=== PATIENT | male | born 1985 | race African-American/Black ===

== ENCOUNTER 2017-02-10 23:40 | Emergency (ER) | payer MEDICARE, MEDICAID ==
[~2017-02-10] VITALS: Ht 180.3 cm; Wt 98.7 kg
[~2017-02-10 23:40] MED LIST: DIVA-18
[2017-02-11] MEDS ORDERED: LEVETIRACETAM 500MG PREMIX 100 ML IV ONE (00:45)
[2017-02-11] MEDS ORDERED: LEVETIRACETAM 500MG TABLET PO NR (01:30)
[2017-02-11] MEDS ORDERED: LEVETIRACETAM 500MG TABLET PO ONE (01:30)
[2017-02-11 02:12] VITALS: BP 124/80
== END 2017-02-11 02:23 | disposition home or self-care (01) ==
LOC: ER 23:45
DX: G40.909 Epilepsy, unspecified, not intractable, without status epilepticus (principal); F17.210 Nicotine dependence, cigarettes, uncomplicated; F12.10 Cannabis abuse, uncomplicated; Z79.899 Other long term (current) drug therapy
CPT/HCPCS: 99283; J1953

== ENCOUNTER 2017-03-11 19:11 | Emergency (ER) | payer MEDICARE, MEDICAID ==
[~2017-03-11] VITALS: Ht 180.3 cm; Wt 84.0 kg
[2017-03-11 19:16] VITALS: BP 122/78
[2017-03-11 21:21] LABS: *AMPHETAMINES SCREEN URINE NEGATIVE (NEGATIVE); *BARBITURATES SCREEN URINE NEGATIVE (NEGATIVE); *BENZODIAZEPINES SCREEN URINE NEGATIVE (NEGATIVE); *COCAINE SCREEN URINE NEGATIVE (NEGATIVE); CANNABINOID URINE SCREEN PRESUMTIVE POSITIVE (NEGATIVE); ECSTASY MDMA SCREEN URINE NEGATIVE (NEGATIVE); METHADONE URINE SCREEN NEGATIVE (NEGATIVE); OPIATES URINE SCREEN NEGATIVE (NEGATIVE); PHENCYCLIDINE URINE SCREEN NEGATIVE (NEGATIVE)
== END 2017-03-11 21:51 | disposition home or self-care (01) ==
LOC: ER 19:12
DX: F19.10 Other psychoactive substance abuse, uncomplicated (principal); F17.210 Nicotine dependence, cigarettes, uncomplicated
CPT/HCPCS: 80305; 99283

== ENCOUNTER 2017-05-05 05:54 | Emergency (ER) | payer MEDICAID, MEDICARE ==
[~2017-05-05] VITALS: Ht 175.3 cm; Wt 82.0 kg
[2017-05-05 05:57] VITALS: BP 140/100
== END 2017-05-05 06:30 | disposition left against medical advice (07) ==
LOC: ER 06:02
DX: R51 Headache (principal); Z53.21 Procedure and treatment not carried out due to patient leaving prior to being seen by health care provider

== ENCOUNTER 2017-08-03 00:11 | Emergency (ER) | payer MEDICAID ==
[~2017-08-03] VITALS: Ht 180.3 cm; Wt 84.0 kg
[~2017-08-03 00:11] MED LIST changes: +KEPP500 PO
[2017-08-03 05:10] VITALS: BP 115/70
[2017-08-03] MEDS ORDERED: BACITRACIN ZINC OINT UDPKT TOP SCH ×2 (07:30)
== END 2017-08-03 07:55 | disposition home or self-care (01) ==
LOC: ER 00:17
DX: S80.212A Abrasion, left knee, initial encounter (principal); S80.211A Abrasion, right knee, initial encounter; G40.909 Epilepsy, unspecified, not intractable, without status epilepticus; Y09 Assault by unspecified means; Y93.89 Activity, other specified; Y92.89 Other specified places as the place of occurrence of the external cause
CPT/HCPCS: 99283

== ENCOUNTER 2017-09-11 10:57 | Emergency (ER) | payer MEDICAID ==
[~2017-09-11] VITALS: Ht 177.8 cm; Wt 80.0 kg
[2017-09-11 10:58] VITALS: BP 126/76
[2017-09-11] MEDS ORDERED: LEVETIRACETAM 1,000 MG in SODIUM CHLORIDE 0.9% 100 ML IV ONE (11:45)
== END 2017-09-11 11:55 | disposition home or self-care (01) ==
LOC: ER 11:12
DX: R56.9 Unspecified convulsions (principal)
CPT/HCPCS: 99283; J1953; Z7610; J7050

== ENCOUNTER 2017-09-17 00:52 | Emergency (ER) | payer MEDICAID ==
[~2017-09-17] VITALS: Ht 182.9 cm; Wt 91.0 kg
[2017-09-17] MEDS ORDERED: SODIUM CHLORIDE 0.9% 1,000 ML IV ONE (01:35)
[2017-09-17] MEDS ORDERED: LEVETIRACETAM 500MG PREMIX 100 ML IV ONE (01:45)
[2017-09-17 09:26] VITALS: BP 110/70
== END 2017-09-17 09:57 | disposition home or self-care (01) ==
LOC: ER 00:52
DX: R56.9 Unspecified convulsions (principal)
CPT/HCPCS: 70450; 71010; 96365; 99284; C1893; J1953; J7030; Z7610

== ENCOUNTER 2017-09-18 08:19 | Emergency (ER) | payer MEDICAID ==
[~2017-09-18] VITALS: Ht 177.8 cm; Wt 87.0 kg
[2017-09-18] MEDS ORDERED: LEVETIRACETAM 500MG TABLET PO ONE (09:30)
[2017-09-18 13:07] VITALS: BP 118/72
== END 2017-09-18 13:08 | disposition home or self-care (01) ==
LOC: ER 08:22
DX: S00.211D Abrasion of right eyelid and periocular area, subsequent encounter (principal); G40.909 Epilepsy, unspecified, not intractable, without status epilepticus; X58.XXXD Exposure to other specified factors, subsequent encounter
CPT/HCPCS: 99283; Z7610